=== PATIENT | female | born 1985 | race Caucasian/White ===

== ENCOUNTER 2018-11-22 11:56 | Emergency (ER) | payer BC ==
[2018-11-22 12:17] VITALS: BP 127/92
--- NOTE | 2018-11-22 12:58 | UC ---
Abdominal Pain Female HPI - HPI Summary HPI Summary: 33 year old female with h/o anxiety, PSH - + c section x 2 presents with RUQ pain x 2 days. Started while hiking yesterday, pain radiated throughout entire abdomen, felt like sour stomach or poorly digested food, no N/V/D/C. Improved with lying down, localized overnight and this AM to RUQ only, worse 15 minutes after eating apple. No fever, chills, no N/V. - History of Current Complaint Chief Complaint: UCAbdominalPain Stated Complaint: STOMACH PAIN Time Seen by Provider: 11/22/18 12:14 Hx Obtained From: Patient Hx Last Menstrual Period: 11/01/18 ?: No Onset/Duration: Sudden Onset, Lasting Days - x 2 days Severity Currently: Mild Pain Intensity: 2 Pain Scale Used: 0-10 Numeric Location: Discrete At: RUQ Radiates: No Character: Colicy, Cramping, Dull Aggravating Factor(s): Food Alleviating Factor(s): Position - lying Allergies/Adverse Reactions: Allergies Allergy/AdvReac Type Severity Reaction Status Date / Time No Known Allergies Allergy Verified 11/22/18 12:12 PMH/Surg Hx/FS Hx/Imm Hx Previously Healthy: Yes - Surgical History Surgical History: Yes Surgery Procedure, Year, and Place: 2 c-sections - Social History Alcohol Use: Daily Alcohol Amount: 1-2 glasses of wine Substance Use Type: None Smoking Status (MU): Never Smoked Tobacco - Immunization History Most Recent Influenza Vaccination: has not had Review of Systems All Other Systems Reviewed And Are Negative: Yes Constitutional: Positive: Negative Gastrointestinal: Positive: Abdominal Pain Is Patient Immunocompromised?: No Physical Exam Triage Information Reviewed: Yes Appearance: Well-Appearing, No Pain Distress, Well-Nourished Vital Signs: Initial Vital Signs Temp 97.8 F 11/22/18 12:12 Pulse 76 11/22/18 12:12 Resp 15 11/22/18 12:12 BP 127/92 11/22/18 12:12 Pulse Ox 100 11/22/18 12:12 Vital Signs Reviewed: Yes Eyes: Positive: Conjunctiva Clear Respiratory: Positive: Chest non-tender, Lungs clear, Normal breath sounds, No respiratory distress, No accessory muscle use. Negative: Crackles, Rhonchi, Stridor, Wheezing Cardiovascular: Positive: RRR, No Murmur Abdomen Description: Positive: No Organomegaly, Soft, McBurney's Point Tenderness, Other: - TTP over RUQ, minimal RLQ. Negative: CVA Tenderness (R), CVA Tenderness (L), Distended, Hepatomegaly, Splenomegaly Bowel Sounds: Positive: Present Neurological Exam: Normal Psychological Exam: Normal Skin Exam: Normal Abd Pain Female Course/Dx - Course Course Of Treatment: RUQ US- negative for GB disease, likely colitis/ gastritis, diet changes, continue to monitor symptoms - Differential Dx/Diagnosis Differential Diagnosis: Constipation, Diverticulitis, Pelvic Inflammatory Disease, Peptic Ulcer Disease Provider Diagnosis: Gastroenteritis Discharge - Sign-Out/Discharge Documenting (check all that apply): Patient Departure All imaging exams completed and their final reports reviewed: Yes - Discharge Plan Condition: Good Disposition: HOME Patient Education Materials: Gastroenteritis (ED) Forms: *Work Release Referrals: Ami Allen MD [Primary Care Provider] - Additional Instructions: - Tylenol as needed for pain - Increase fluids - [place] diet- simple carbohydrates, avoid spice, ruffage, gradually increase foods. - Go to ER with increased pain, fever/ chills, nausea/ vomiting, blood in stool - Billing Disposition and Condition Condition: GOOD Disposition: Home
== END 2018-11-22 13:19 | disposition home or self-care (01) ==
LOC: UCCORT 11:56
DX: K52.9 Noninfective gastroenteritis and colitis, unspecified (principal)
CPT/HCPCS: 76705; 99211; G0463